=== PATIENT | male | born 1935 | race Caucasian/White ===

== ENCOUNTER 2017-08-06 13:39 | Inpatient (IN) | payer MEDICARE, MEDICAID ==
[~2017-08-06] VITALS: Ht 182.9 cm; Wt 99.3 kg
[2017-08-06] MEDS ORDERED: AMLO5TAB2 PO (13:53)
[2017-08-06] MEDS ORDERED: BRIM5DRO3 EACHEYE (13:53)
[2017-08-06] MEDS ORDERED: CLON0.5T4 PO (13:54)
[2017-08-06] MEDS ORDERED: DEXL60CA3 PO (13:54)
[2017-08-06] MEDS ORDERED: CLOP75TA33 PO (13:54)
[2017-08-06] MEDS ORDERED: GABA-534 PO (13:55)
[2017-08-06] MEDS ORDERED: PARO40TA4 PO (13:56)
[2017-08-06] MEDS ORDERED: MELO-107 PO (13:56)
[2017-08-06] MEDS ORDERED: TEMA15CA PO (13:57)
[2017-08-06] MEDS ORDERED: PRAZ5CAP2 PO (13:57)
[2017-08-06] MEDS ORDERED: TAMS0.4C34 PO (13:57)
[2017-08-06] MEDS ORDERED: ZIPR40CA2 PO (13:58)
[2017-08-06] MEDS ORDERED: DOCU-141 PO (13:58)
[2017-08-06] MEDS ORDERED: MELA5TAB PO (13:59)
--- NOTE | 2017-08-06 14:40 | NUR ---
NURSING OFFICE CALLED REQUEST FOR 1:1 SITTER. PER NURSING OFFICE NONE AVAILABLE AT THIS TIME.
[2017-08-06 14:44] LABS: BASOPHILS # (AUTO) 0.1 K/uL (0.0-8.0); BASOPHILS % (AUTO) 0.8 % (0.0-2.0); EOSINOPHILS # (AUTO) 0.3 K/uL (0.0-0.7); EOSINOPHILS % (AUTO) 3.6 % (0.0-7.0); HEMATOCRIT 43.7 % (36.7-47.1); HEMOGLOBIN 14.9 g/dL (12.5-16.3); LYMPHOCYTES # (AUTO) 1.6 K/uL (20.0-40.0); LYMPHOCYTES % (AUTO) 19.1 % (20.5-51.5); MEAN CORPUSCULAR HEMOGLOBIN 29.5 uug (23.8-33.4); MEAN CORPUSCULAR HGB CONC 34 g/dL (32.5-36.3); MEAN CORPUSCULAR VOLUME 86.7 fL (73.0-96.2); MONOCYTES # (AUTO) 0.4 K/uL (2.0-10.0); NEUTROPHILS # (AUTO) 5.9 K/uL (1.8-8.9); NEUTROPHILS % (AUTO) 71.5 % (38.5-71.5); PLATELET COUNT (AUTO) 260 K/uL (152-348); RED BLOOD CELL COUNT(AUTO) 5.04 MIL/uL (4.06-5.63); WHITE BLOOD COUNT (AUTO) 8.2 K/uL (3.6-10.2)
[2017-08-06 14:49] LABS: CARBON DIOXIDE 29 mmol/L (21-32); CHLORIDE 106 mmol/L (98-107); CREATININE 1.3 mg/dL (0.6-1.3); GLUCOSE 111 mg/dL (74-106); POTASSIUM 4.5 mmol/L (3.5-5.1); UREA NITROGEN, BLOOD 20 mg/dL (7-18)
[2017-08-06 14:50] LABS: ETHANOL < 3 MG/DL (0-0)
[2017-08-06 14:53] LABS: *BILIRUBIN,URIN NEGATIVE (NEGATIVE); *BLOOD, URINE NEGATIVE (NEGATIVE); *CLARITY,URINE CLEAR (CLEAR); *COLOR,URINE YELLOW (YELLOW); *KETONES,URINE NEGATIVE (NEGATIVE); *PROTEIN,URINE NEGATIVE (NEGATIVE); *UROBILINOGEN,URINE 0.2 E.U./dl (NORMAL); LEUKOCYTE ESTERASE ,URINE NEGATIVE (NEGATIVE); NITRITE, URINE NEGATIVE (NEGATIVE); UGLUCOSE NEGATIVE (NEGATIVE)
[2017-08-06 14:55] LABS: ALANINE AMINOTRANSFERASE 33 U/L (16-63); ALKALINE PHOSPHATASE 92 U/L (50-136); ASPARTATE AMINOTRANSFERASE 20 U/L (15-37); BILIRUBIN,DIRECT 0.1 mg/dL (0.0-0.2); BILIRUBIN,TOTAL 0.5 mg/dL (0.2-1.0); TOTAL PROTEIN, SERUM 7.3 g/dL (6.4-8.2)
[2017-08-06 14:56] LABS: ACETAMINOPHEN < 2.0 ug/mL (10-30)
--- NOTE | 2017-08-06 15:00 | NUR ---
PATIENT IS MEDICALLY CLEARED BY DR MONTANO
[2017-08-06 15:05] LABS: *AMPHETAMINE, URINE NEGATIVE (NEGATIVE); *BARBITURATE, URINE NEGATIVE (NEGATIVE); *CANNABINOID, URINE NEGATIVE (NEGATIVE); *COCCAINE, URINE NEGATIVE (NEGATIVE); *OPIATE, URINE NEGATIVE (NEGATIVE); *PHENCYCLIDINE SCREEN,URINE NEGATIVE (NEGATIVE)
[2017-08-06 15:11] LABS: BACTERIA,URINE FEW /HPF (NONE SEEN); RBC,URINE 0-3 /HPF (0-3); SQUAMOUS EPITHELIAL CELL,UR FEW /HPF (NONE SEEN); WBC,URINE 0-3 /HPF (0-3)
--- NOTE | 2017-08-06 15:15 | NUR ---
SPOKE WITH HUMBERTO WILL COME SEE PATIENT FOR EVAL.
--- NOTE | 2017-08-06 15:30 | NUR ---
PATIENT IN BED WATCHING TV. NO S/S ANY DISTRESS.
--- NOTE | 2017-08-06 15:41 | NUR ---
PATIENT ASSISTED TO BATHROOM. VERBAL CUES GIVEN. PATIENT NOTED SLOW STEADY GAIT.
--- NOTE | 2017-08-06 17:40 | NUR ---
HUMBERTO GAMBLE AT BEDSIDE FOR EVAL.
--- NOTE | 2017-08-06 19:19 | NUR ---
REPORT GIVE TO MAKAYLA AYALA.
--- NOTE | 2017-08-06 19:40 | NUR ---
Report given to Josie Odom
[2017-08-06] MEDS ORDERED: MAGNESIUM HYDROXIDE 30 ML LIQUID UDC PO PRN (20:30)
[2017-08-06] MEDS ORDERED: MAG HYDROX/AL HYDROX/SIMETH 30 ML LIQUID UDC PO PRN (20:30)
[2017-08-06] MEDS ORDERED: PRAZOSIN HCL 1 MG CAPSULE ONE (21:28)
[2017-08-06] MEDS ORDERED: MELATONIN 3 MG TABLET ONE (21:29)
--- NOTE | 2017-08-06 21:30 | NUR ---
AT APPROX 2009, ADMITTED 81 YEARS OLD MALE TO [facility]. PATIENT LIVES AT HOME IN [place] WITH HIS . HE WAS MEDICALLY CLEARED AT [facility] AND WAS ADMITTED TO THE [facility] UNDER THE CARE OF DR. AQUINO (PSYCH) AND DR. MILLER (COSMETIC SURGEON) PT IS VOLUNTARY, he has recent issue of increased anxiety and depression, not managed as yet by psychotropics. Pt has a history of anxiety, depression, PTSD and HTN. Upon admission, patient was noted a/o x 4. he was noted irritable, he stated that he had to wait five hours in the ER before coming to the unit. Pt was redirected. He was compliant with admission papers and admission process. patient denied SI, denied hearing voices / Skin assessment: pt noted with right elbow mild deformity, pt stated that it is and old fractured when he was a child and his father broke it. mild deformity noted in left ankle lateral aspect, he also stated that it is from an old Fx. It was also noted one tattoo in his right deltoid that says "[facility]" and another one in his left deltoid; however it was removed and only a mild scar is seen, he stated that he had the name of his ex- there. Medication were reconciled with Dr. AQUINO (PSYCH) (who was in the unit at time of admission) AND DR. MILLER (COSMETIC SURGEON). pt was advised of unit rules. Will continue to monitor.
--- NOTE | 2017-08-06 21:45 | NUR ---
SPOKE WITH CINDY At [phone], SHE WAS ADVISED OF PATIENT ADMISSION TO [facility] UNDER "VOLUNTARY".
[2017-08-06] MEDS: GABAPENTIN 300 MG CAPSULE PO SCH (21:59)
[2017-08-06] MEDS: CLONAZEPAM 0.5 MG TABLET PO SCH (21:59)
[2017-08-06] MEDS: MELATONIN 3 MG TABLET PO SCH (22:00)
[2017-08-06] MEDS: PRAZOSIN HCL 1 MG CAPSULE PO SCH (22:01)
[2017-08-06] MEDS: ZIPRASIDONE 20 MG CAPSULE PO SCH (22:04)
[2017-08-07 00:20] VITALS: BP 155/72
[2017-08-07] MEDS: ACETAMINOPHEN 325 MG TABLET PO PRN (00:57)
--- NOTE | 2017-08-07 01:35 | NUR ---
PATIENT DENIED SI, VH/AH; HOWEVER, HE STATED THAT HE HAS THOUGHTS TO HARM OTHERS AT THIS TIME AND THAT IS WHY HE IS HERE HERE. WILL CONTINUE TO MONITOR CLOSELY.
[2017-08-07 05:19] VITALS: BP 170/81
--- NOTE | 2017-08-07 06:00 | NUR ---
PATIENT SLEPT FOR APPROX 5.30 HRS THROUGH THE NIGHT. NO BX PROBLEMS NOTED AT THIS TIME.
[2017-08-07 07:30] VITALS: BP 139/72
[2017-08-07] MEDS: ZIPRASIDONE 20 MG CAPSULE PO SCH ×2 (08:16→16:41)
[2017-08-07] MEDS: PAROXETINE HCL 20 MG TABLET PO SCH (08:16)
[2017-08-07] MEDS: Z GUARD REMEDY PASTE 57 GM TUBE TOP SCH ×2 (08:17→20:57)
--- NOTE | 2017-08-07 08:21 | NUR ---
PATIENT IS OUT IN THE [place] ASKING FOR PHONE TO MAKE PHONE CALL. PATIENT IS CALM AND COOPERATIVE AT THIS TIME. PATIENT ENJOYED BREAKFAST AND CONSUMED 100%. COMPLIANT WITH MEDICATIONS THIS MORNING
--- NOTE | 2017-08-07 12:22 | NUR ---
PATIENT IS IN HIS ROOM WITH LIGHTS TURNED OFF AND ASLEEP. PATIENT HAD A LATE ADMISSION LAST NIGHT.
[2017-08-07] MEDS: DOCUSATE SODIUM 100 MG CAPSULE PO SCH ×2 (12:45→16:40)
[2017-08-07] MEDS ORDERED: Medication Not On Formulary EA (Dexlansoprazole (Dexilant) 1 CAP) PO SCH (12:45)
[2017-08-07] MEDS ORDERED: BRIMONIDINE-P 0.1% OPHTH DROP 5 ML DROPS EACHEYE SCH (12:45)
[2017-08-07 13:00] VITALS: BP 154/67
[2017-08-07] MEDS: CLOPIDOGREL 75 MG TABLET PO SCH (13:54)
[2017-08-07] MEDS: MELOXICAM 7.5 MG TABLET PO SCH (13:54)
[2017-08-07] MEDS: TAMSULOSIN HCL 0.4 MG CAP.SR.24H PO SCH (13:54)
[2017-08-07] MEDS: AMLODIPINE 5 MG TABLET PO SCH (13:55)
[2017-08-07] MEDS: BRIMONIDINE 0.2% OPHT DROP 10 ML BOTTLE EACHEYE SCH ×2 (14:26→20:56)
[2017-08-07] MEDS: GABAPENTIN 300 MG CAPSULE PO SCH ×2 (14:26→20:56)
--- NOTE | 2017-08-07 14:30 | NUR ---
PATIENT IS READING IN HIS ROOM. COMPLIANT WITH MEDICATION.
--- NOTE | 2017-08-07 16:44 | NUR ---
PATIENT LIKES TO KEEP TO SELF IN ROOM. ALWAYS READING SOMETHING DIFFERENT IN HIS ROOM.
--- NOTE | 2017-08-07 19:30 | NUR ---
nsg: pt a/o x 4, pleasant, cooperative, no signs of depression, anxiety. independent with adl's. cont to monitor.
[2017-08-07] MEDS: CLONAZEPAM 0.5 MG TABLET PO SCH (20:56)
[2017-08-07] MEDS: MELATONIN 3 MG TABLET PO SCH (20:56)
[2017-08-07] MEDS: PRAZOSIN HCL 1 MG CAPSULE PO SCH (20:57)
[2017-08-07 21:03] VITALS: BP 143/73
[2017-08-07] MEDS: TEMAZEPAM 15 MG CAPSULE PO PRN (22:31)
[2017-08-08] MEDS: ACETAMINOPHEN 325 MG TABLET PO PRN (03:12)
[2017-08-08] MEDS: LORAZEPAM 1 MG TABLET PO PRN (03:12)
[2017-08-08] MEDS: PANTOPRAZOLE SODIUM 40 MG TABLET.DR PO SCH (06:49)
--- NOTE | 2017-08-08 06:59 | NUR ---
nsg: pt awake, pleasant. denies any discomfort. slept for 5.30 hrs.
[2017-08-08 07:30] VITALS: BP 148/69
--- NOTE | 2017-08-08 07:39 | NUR ---
PATIENT IS IN ROOM READING A BOOK
[2017-08-08] MEDS: BRIMONIDINE 0.2% OPHT DROP 10 ML BOTTLE EACHEYE SCH ×2 (08:18→20:23)
[2017-08-08] MEDS: DOCUSATE SODIUM 100 MG CAPSULE PO SCH ×2 (08:18→15:57)
[2017-08-08] MEDS: TAMSULOSIN HCL 0.4 MG CAP.SR.24H PO SCH (08:19)
[2017-08-08] MEDS: ZIPRASIDONE 20 MG CAPSULE PO SCH ×2 (08:19→17:15)
[2017-08-08] MEDS: MELOXICAM 7.5 MG TABLET PO SCH (08:20)
[2017-08-08] MEDS: CLOPIDOGREL 75 MG TABLET PO SCH (08:21)
[2017-08-08] MEDS: PAROXETINE HCL 20 MG TABLET PO SCH (08:21)
[2017-08-08] MEDS: AMLODIPINE 5 MG TABLET PO SCH (08:22)
[2017-08-08] MEDS: Z GUARD REMEDY PASTE 57 GM TUBE TOP SCH ×2 (08:23→20:23)
--- NOTE | 2017-08-08 08:31 | NUR ---
PATIENT STATES THAT SHE IS GOING TO START REFUSING TO EAT OR TAKING MEDS. IS TALKING RANDOM THINGS IN THE HALLWAY IN THE NURSING STATION AND CRYING.
--- NOTE | 2017-08-08 09:01 | NUR ---
PATIENT AMBULATED AND PARTICIPATED WELL WITH PHYSICAL THERAPY.
[2017-08-08 15:00] VITALS: BP 134/54
--- NOTE | 2017-08-08 15:33 | NUR ---
Initial DC Plan: Patient currently lives at home with his Melinda [[address] [place] [address]; [phone]]. SW will follow up with MD, patient, and patient's to discuss most appropriate discharge plans. SW will form a safe and proper discharge.
[2017-08-08] MEDS: GABAPENTIN 300 MG CAPSULE PO SCH ×2 (15:56→20:21)
[2017-08-08 20:00] VITALS: BP 142/66
[2017-08-08] MEDS: CLONAZEPAM 0.5 MG TABLET PO SCH (20:21)
[2017-08-08] MEDS: MELATONIN 3 MG TABLET PO SCH (20:22)
[2017-08-08] MEDS: PRAZOSIN HCL 1 MG CAPSULE PO SCH (20:23)
[2017-08-08] MEDS: TEMAZEPAM 15 MG CAPSULE PO PRN (22:20)
--- NOTE | 2017-08-08 22:20 | NUR ---
GPS: PATIENT C/O INSOMNIA. RESTORIL 7.5 MG PO GIVEN.
[2017-08-09] MEDS: LORAZEPAM 1 MG TABLET PO PRN (01:34)
--- NOTE | 2017-08-09 01:34 | NUR ---
GPS: PATIENT C/O ANXIETY. ATIVAN 1MG PO GIVEN VIA CHARGE NURSE.
--- NOTE | 2017-08-09 02:34 | NUR ---
GPS: PATIENT STATED FEELING CALM NOW. PRN EFFECTIVE.
[2017-08-09] MEDS: PANTOPRAZOLE SODIUM 40 MG TABLET.DR PO SCH (06:17)
--- NOTE | 2017-08-09 06:23 | NUR ---
GPS: REMAIN CALM AND COOPERATIVE WITH MEDICATIONS AND CARE.SLEPT 6 HRS THROUGH THE SHIFT. PATIENT IS SELF CARE.AMBULATE WITH STEADY GAIT. NO BEHAVIOR PROBLEM AT THIS TIME. CONTINUE PLAN OF CARE.
[2017-08-09 07:30] VITALS: BP_SYST 141; BP_DIAS 63; BP_DIAS 92
[2017-08-09] MEDS: CLOPIDOGREL 75 MG TABLET PO SCH (08:17)
[2017-08-09] MEDS: DOCUSATE SODIUM 100 MG CAPSULE PO SCH ×2 (08:17→16:34)
[2017-08-09] MEDS: TAMSULOSIN HCL 0.4 MG CAP.SR.24H PO SCH (08:17)
[2017-08-09] MEDS: ZIPRASIDONE 20 MG CAPSULE PO SCH ×2 (08:17→17:12)
[2017-08-09] MEDS: MELOXICAM 7.5 MG TABLET PO SCH (08:17)
[2017-08-09] MEDS: PAROXETINE HCL 20 MG TABLET PO SCH (08:17)
[2017-08-09] MEDS: AMLODIPINE 5 MG TABLET PO SCH (08:18)
[2017-08-09] MEDS: BRIMONIDINE 0.2% OPHT DROP 10 ML BOTTLE EACHEYE SCH ×2 (08:19→20:09)
[2017-08-09] MEDS: Z GUARD REMEDY PASTE 57 GM TUBE TOP SCH ×2 (08:20→20:10)
[2017-08-09] MEDS: GABAPENTIN 300 MG CAPSULE PO SCH ×2 (14:58→20:09)
[2017-08-09 16:15] VITALS: BP 93/53
[2017-08-09 19:45] VITALS: BP 141/57
[2017-08-09] MEDS: CLONAZEPAM 0.5 MG TABLET PO SCH (20:09)
[2017-08-09] MEDS: MELATONIN 3 MG TABLET PO SCH (20:10)
[2017-08-09] MEDS: PRAZOSIN HCL 1 MG CAPSULE PO SCH (20:10)
[2017-08-09] MEDS: TEMAZEPAM 15 MG CAPSULE PO PRN (22:53)
--- NOTE | 2017-08-09 22:54 | NUR ---
GPS: PATIENT C/O INSOMNIA. RESTORIL 15 MG PO GIVEN PER PATIENT.
--- NOTE | 2017-08-09 23:54 | NUR ---
GPS: PATIENT SLEEPING EYE CLOSE. PRN FOR SLEEP EFFECTIVE.
[2017-08-10] MEDS: PANTOPRAZOLE SODIUM 40 MG TABLET.DR PO SCH (06:05)
--- NOTE | 2017-08-10 06:26 | NUR ---
GPS: REMAIN CALM AND COOPERATIVE WITH MEDICATIONS AND CARE. SLEPT 9 HRS THROUGH THE SHIFT. PATIENT IS SELF CARE.AMBULATE WITH STEADY GAIT. NO BEHAVIOR PROBLEM NOTED AT THIS TIME. CONTINUE MONITORING FOR SAFETY.
[2017-08-10 07:53] VITALS: BP 137/67
[2017-08-10] MEDS: MELOXICAM 7.5 MG TABLET PO SCH (08:13)
[2017-08-10] MEDS: TAMSULOSIN HCL 0.4 MG CAP.SR.24H PO SCH (08:13)
[2017-08-10] MEDS: CLOPIDOGREL 75 MG TABLET PO SCH (08:13)
[2017-08-10] MEDS: BRIMONIDINE 0.2% OPHT DROP 10 ML BOTTLE EACHEYE SCH ×2 (08:13→21:19)
[2017-08-10] MEDS: PAROXETINE HCL 20 MG TABLET PO SCH (08:13)
[2017-08-10] MEDS: DOCUSATE SODIUM 100 MG CAPSULE PO SCH ×2 (08:13→16:15)
[2017-08-10] MEDS: ZIPRASIDONE 20 MG CAPSULE PO SCH ×2 (08:13→17:04)
[2017-08-10] MEDS: AMLODIPINE 5 MG TABLET PO SCH (08:14)
[2017-08-10] MEDS: Z GUARD REMEDY PASTE 57 GM TUBE TOP SCH ×2 (08:15→21:45)
[2017-08-10] MEDS: GABAPENTIN 300 MG CAPSULE PO SCH ×2 (14:29→21:19)
[2017-08-10 16:29] VITALS: BP 133/70
--- NOTE | 2017-08-10 20:30 | NUR ---
RECEIVED PATIENT IN HIS ROOM, HE IS NOTED A/O X 3, CALM AND COOPERATIVE. HE IS ABLE TO AMBULATED WITH STEADY GAIT AND ABLE TO MAKE HIS NEEDS KNOWN. HE DENIES SI/AH/VH. HE STATED, "I AM DOING FINE, I FEEL BETTER NOW". SAFETY WAS EMPHASIS. WILL CONTINUE TO MONITOR.
[2017-08-10] MEDS: CLONAZEPAM 0.5 MG TABLET PO SCH (21:19)
[2017-08-10] MEDS: MELATONIN 3 MG TABLET PO SCH (21:20)
[2017-08-10] MEDS: PRAZOSIN HCL 1 MG CAPSULE PO SCH (21:20)
[2017-08-11] MEDS: TEMAZEPAM 15 MG CAPSULE PO PRN (00:43)
--- NOTE | 2017-08-11 00:43 | NUR ---
PATIENT APPROACHED THE NURSING STATION AND ASKED FOR A "SLEEPING PILL." RESTORIL 15MG PO PRN WAS GIVEN FOR INSOMNIA, PER NURSE ASSESSMENT AND PT REQUEST. WILL CONTINUE TO MONITOR.
--- NOTE | 2017-08-11 01:46 | NUR ---
PATIENT NOTED SLEEPING COMFORTABLE IN HIS BED. WILL CONTINUE TO MONITOR.
[2017-08-11] MEDS: PANTOPRAZOLE SODIUM 40 MG TABLET.DR PO SCH (06:06)
--- NOTE | 2017-08-11 06:33 | NUR ---
Pt slept for approx 7.0 hrs through the night. he is noted calm and cooperative. withdrawn at time. denies SI/HI at this time. he also had a shower this am. will continue to monitor.
[2017-08-11 07:30] VITALS: BP 142/79
[2017-08-11] MEDS: DOCUSATE SODIUM 100 MG CAPSULE PO SCH ×2 (08:23→16:05)
[2017-08-11] MEDS: TAMSULOSIN HCL 0.4 MG CAP.SR.24H PO SCH (08:24)
[2017-08-11] MEDS: CLOPIDOGREL 75 MG TABLET PO SCH (08:24)
[2017-08-11] MEDS: AMLODIPINE 5 MG TABLET PO SCH (08:24)
[2017-08-11] MEDS: ZIPRASIDONE 20 MG CAPSULE PO SCH ×2 (08:24→17:10)
[2017-08-11] MEDS: PAROXETINE HCL 20 MG TABLET PO SCH (08:24)
[2017-08-11] MEDS: MELOXICAM 7.5 MG TABLET PO SCH (08:24)
[2017-08-11] MEDS: BRIMONIDINE 0.2% OPHT DROP 10 ML BOTTLE EACHEYE SCH ×2 (08:25→20:00)
[2017-08-11] MEDS: Z GUARD REMEDY PASTE 57 GM TUBE TOP SCH ×2 (08:25→21:21)
[2017-08-11] MEDS: ACETAMINOPHEN 325 MG TABLET PO PRN (09:39)
[2017-08-11] MEDS: GABAPENTIN 300 MG CAPSULE PO SCH ×2 (15:28→20:00)
[2017-08-11 15:29] VITALS: BP 179/61
[2017-08-11] MEDS: MELATONIN 3 MG TABLET PO SCH (20:00)
[2017-08-11] MEDS: CLONAZEPAM 0.5 MG TABLET PO SCH (20:00)
[2017-08-11] MEDS: PRAZOSIN HCL 1 MG CAPSULE PO SCH (20:01)
[2017-08-11 20:04] VITALS: BP 172/81
--- NOTE | 2017-08-11 20:05 | NUR ---
RECEIVED PATIENT IN HIS ROOM, HE IS NOTED A/O X 3, CALM AND COOPERATIVE. HE IS ABLE TO AMBULATED WITH STEADY GAIT AND ABLE TO MAKE HIS NEEDS KNOWN. HE DENIES SI/AH/VH. HE IS NOTED LESS WITHDRAWN AND LESS ANXIOUS. GOOD INSIGHT NOTED INTO THE REASON FOR HIS VOLUNTARY ADMISSION TO MHU. PATIENT B/P NOTED AT 1999: 172/81MMHG AND PULSE 78BPM. PRAZOSIN 5MG PO QHS WAS GIVEN. WILL RECHECKS IN ONE HOUR. SAFETY WAS EMPHASIS. WILL CONTINUE TO MONITOR.
--- NOTE | 2017-08-11 21:05 | NUR ---
B/P WAS RECHECKED: 135/73MMHG. AND PULSE 61BPM. PATIENT RESTING COMFORTABLY IN HIS BED. WILL CONTINUE TO MONITOR CLOSELY
[2017-08-11 22:00] VITALS: BP 135/73
[2017-08-12] MEDS: TEMAZEPAM 15 MG CAPSULE PO PRN (00:43)
--- NOTE | 2017-08-12 00:46 | NUR ---
PATIENT APPROACHED THE NURSING STATION AND STATED, "I CAN'T SLEEP." RESTORIL 15MG PO PRN WAS GIVEN FOR INSOMNIA, PER NURSE ASSESSMENT AND PT REQUEST. WILL CONTINUE TO MONITOR.
--- NOTE | 2017-08-12 01:56 | NUR ---
PT NOTED ASLEEP IN HIS BED. WILL CONTINUE TO MONITOR.
[2017-08-12] MEDS: PANTOPRAZOLE SODIUM 40 MG TABLET.DR PO SCH (06:33)
[2017-08-12 07:30] VITALS: BP 152/59
[2017-08-12] MEDS: BRIMONIDINE 0.2% OPHT DROP 10 ML BOTTLE EACHEYE SCH ×2 (08:37→20:06)
[2017-08-12] MEDS: DOCUSATE SODIUM 100 MG CAPSULE PO SCH ×2 (08:37→17:00)
[2017-08-12] MEDS: ZIPRASIDONE 20 MG CAPSULE PO SCH ×2 (08:38→17:09)
[2017-08-12] MEDS: CLOPIDOGREL 75 MG TABLET PO SCH (08:38)
[2017-08-12] MEDS: PAROXETINE HCL 20 MG TABLET PO SCH (08:38)
[2017-08-12] MEDS: TAMSULOSIN HCL 0.4 MG CAP.SR.24H PO SCH (08:38)
[2017-08-12] MEDS: AMLODIPINE 5 MG TABLET PO SCH ×2 (08:39→20:06)
[2017-08-12] MEDS: MELOXICAM 7.5 MG TABLET PO SCH (08:39)
[2017-08-12] MEDS: Z GUARD REMEDY PASTE 57 GM TUBE TOP SCH ×2 (09:45→20:07)
[2017-08-12] MEDS: GABAPENTIN 300 MG CAPSULE PO SCH ×2 (15:08→20:05)
[2017-08-12 16:51] VITALS: BP 155/75
--- NOTE | 2017-08-12 17:49 | NUR ---
Patient withdrawn and isolative to his room spent time reading book, calm and guarded, no interaction with peers and staff, ate 100% breakfast and lunch. Denies suicidal/homicidal ideations, denies hearing voices, no behavior issues noted. Medication compliant and cooperative, no c/o pain or discomfort noted. Encouraged to verbalized feelings and concerns to staff. Poor hygiene, poor grooming, needs prompting with adl's. Will continue to monitor for safety, needs and behavioral changes.
[2017-08-12] MEDS: CLONAZEPAM 0.5 MG TABLET PO SCH (20:05)
[2017-08-12 20:16] VITALS: BP 161/88
[2017-08-12] MEDS: PRAZOSIN HCL 1 MG CAPSULE PO SCH (20:46)
[2017-08-12] MEDS: MELATONIN 3 MG TABLET PO SCH (21:13)
[2017-08-13] MEDS: TEMAZEPAM 15 MG CAPSULE PO PRN (00:06)
[2017-08-13] MEDS: PANTOPRAZOLE SODIUM 40 MG TABLET.DR PO SCH (06:13)
[2017-08-13] MEDS: MELOXICAM 7.5 MG TABLET PO SCH (08:10)
[2017-08-13] MEDS: CLOPIDOGREL 75 MG TABLET PO SCH (08:10)
[2017-08-13] MEDS: DOCUSATE SODIUM 100 MG CAPSULE PO SCH (08:10)
[2017-08-13] MEDS: AMLODIPINE 5 MG TABLET PO SCH (08:10)
[2017-08-13] MEDS: Z GUARD REMEDY PASTE 57 GM TUBE TOP SCH (08:11)
[2017-08-13] MEDS: BRIMONIDINE 0.2% OPHT DROP 10 ML BOTTLE EACHEYE SCH (08:11)
[2017-08-13] MEDS: PAROXETINE HCL 20 MG TABLET PO SCH (08:13)
[2017-08-13] MEDS: TAMSULOSIN HCL 0.4 MG CAP.SR.24H PO SCH (08:13)
[2017-08-13] MEDS: ZIPRASIDONE 20 MG CAPSULE PO SCH (08:14)
[2017-08-13 08:18] VITALS: BP 146/73
--- NOTE | 2017-08-13 08:21 | NUR ---
DC Note: Patient will be discharged back home with family [[address] [place] [address]; [phone]] via private transportation. SW spoke with patient's [id number] Chiquita Guevara [[phone]] who stated she will bean picker patient around 12:3pm. Patient is alert and oriented x4 and denies SI and HI. Patient is aware and agreeable to discharge plans. Patient's Melinda Mota [[phone]] is aware and agreeable to discharge plans. Patient will follow up with his discharge door operator Dr. Chavez [[address] [place] [address]; ] and psychiatrist Dr. Harris [[address], [place] [address]; ]. Patient was provided with additional outpatient mental health resources to [facility] , [facility] , and the National Suicide Prevention Lifeline .
[2017-08-13 10:08] LABS: BASOPHILS # (AUTO) 0.1 K/uL (0.0-8.0); BASOPHILS % (AUTO) 0.9 % (0.0-2.0); EOSINOPHILS # (AUTO) 0.3 K/uL (0.0-0.7); EOSINOPHILS % (AUTO) 3.9 % (0.0-7.0); HEMATOCRIT 42.2 % (36.7-47.1); HEMOGLOBIN 14.6 g/dL (12.5-16.3); LYMPHOCYTES % (AUTO) 25.6 % (20.5-51.5); MEAN CORPUSCULAR HEMOGLOBIN 30.1 uug (23.8-33.4); MEAN CORPUSCULAR HGB CONC 35 g/dL (32.5-36.3); MEAN CORPUSCULAR VOLUME 86.7 fL (73.0-96.2); MONOCYTES # (AUTO) 0.6 K/uL (2.0-10.0); MONOCYTES % (AUTO) 7.5 % (0.0-11.0); NEUTROPHILS # (AUTO) 4.8 K/uL (1.8-8.9); NEUTROPHILS % (AUTO) 62.1 % (38.5-71.5); PLATELET COUNT (AUTO) 243 K/uL (152-348); RED BLOOD CELL COUNT(AUTO) 4.87 MIL/uL (4.06-5.63); WHITE BLOOD COUNT (AUTO) 7.8 K/uL (3.6-10.2)
[2017-08-13 10:25] LABS: ALANINE AMINOTRANSFERASE 37 U/L (16-63); ALKALINE PHOSPHATASE 93 U/L (50-136); ASPARTATE AMINOTRANSFERASE 17 U/L (15-37); BILIRUBIN,TOTAL 0.4 mg/dL (0.2-1.0); CARBON DIOXIDE 28 mmol/L (21-32); CHLORIDE 106 mmol/L (98-107); CHOLESTEROL 136 mg/dL (<200); CREATININE 1.5 mg/dL (0.6-1.3); GLUCOSE 85 mg/dL (74-106); HDL CHOLESTEROL 36 mg/dL (40-60); MAGNESIUM 1.9 mg/dL (1.8-2.4); POTASSIUM 3.9 mmol/L (3.5-5.1); TOTAL PROTEIN, SERUM 7.1 g/dL (6.4-8.2); TRIGLYCERIDES 245 MG/DL (30-150); UREA NITROGEN, BLOOD 26 mg/dL (7-18)
[2017-08-13 10:30] LABS: THYROID STIMULATING HORMONE 0.988 mIU/mL (0.358-3.740)
--- NOTE | 2017-08-13 13:22 | NUR ---
D/C ORDERS RECEIVED NOTED AND CARRIED OUT,D/C INSTRUCTION AND EDUCATION GIVEN TO THE PT AND HIS FAMILY ,PERSONAL BELONGING GIVEN TO THE PT PT LEFT THE FACILITY VIA PRIVATE CAR IN STABLE CONDITION
== END 2017-08-13 13:26 | disposition home or self-care (01) | DRG 885 ==
LOC: ER 13:39 → GPS 19:58
PROVIDERS: ADMIT Psychiatry & Neurology Psychiatry; ATTEND Internal Medicine
DX: F33.2 Major depressive disorder, recurrent severe without psychotic features (principal); N17.0 Acute kidney failure with tubular necrosis; F03.91 Unspecified dementia, unspecified severity, with behavioral disturbance; F43.10 Post-traumatic stress disorder, unspecified; Z79.899 Other long term (current) drug therapy; Z91.410 Personal history of adult physical and sexual abuse; Z88.2 Allergy status to sulfonamides; Z86.73 Personal history of transient ischemic attack (TIA), and cerebral infarction without residual deficits; Z79.02 Long term (current) use of antithrombotics/antiplatelets; R45.850 Homicidal ideations; N40.0 Benign prostatic hyperplasia without lower urinary tract symptoms; K21.9 Gastro-esophageal reflux disease without esophagitis; I10 Essential (primary) hypertension; H40.9 Unspecified glaucoma; E78.1 Pure hyperglyceridemia; Y92.019 Unspecified place in single-family (private) house as the place of occurrence of the external cause; T39.395A Adverse effect of other nonsteroidal anti-inflammatory drugs [NSAID], initial encounter; G47.9 Sleep disorder, unspecified
CPT/HCPCS: 36415; 71045; 80307; 83735; 84100; 84443; 85025; 93005; A4663; G0480; G0480-TC